=== PATIENT | male | born 1980 | race Two or more races ===

== ENCOUNTER 2022-07-14 10:37 | Emergency (ER) | payer MEDICAID ==
[2022-07-14] MEDS ORDERED: Meclizine 25 MG Tab PO ONE (10:53)
[2022-07-14 11:41] LABS: CHLORIDE,CL 102 mmol/L (98-107); SODIUM,NA 138 mmol/L (136-145)
[2022-07-14 11:42] LABS: ANION GAP 10.3 mmol/L (5-15); ESTIMATED GFR 96 mL/min (>=60)
== END 2022-07-14 12:49 | disposition home or self-care (01) ==
LOC: VM.ED 10:37
DX: H81.10 Benign paroxysmal vertigo, unspecified ear (principal); Z88.0 Allergy status to penicillin
CPT/HCPCS: 36415; 70450; 80053; 81003; 82550; 83615; 84484; 85025; 86140; 97161; 99285; A9270